=== PATIENT | female | born 1950 | race Caucasian/White ===

== ENCOUNTER → 2019-04-03 | Outpatient (CLI) | payer BC ==
--- NOTE | 2019-04-03 11:08 | MM ---
Reason for exam: screening (asymptomatic). Last mammogram was performed 1 year and 1 month ago. History: Patient is postmenopausal. Physical Findings: A clinical breast exam by your physician is recommended on an annual basis and results should be correlated with mammographic findings. MG 3D Screening Mammo W/Cad Bilateral CC and MLO view(s) were taken. Prior study comparison: February 19, 2018, mammogram, performed at [facility]. January 13, 2017, mammogram, performed at [facility]. The breast tissue is heterogeneously dense. This may lower the sensitivity of mammography. Benign appearing bilateral calcifications. No suspicious abnormality. No significant changes when compared with prior studies. ASSESSMENT: Benign, BI-RAD 2 RECOMMENDATION: Routine screening mammogram of both breasts in 1 year.
== END | disposition home or self-care (01) ==
LOC: RADMAMWWP 06:56
PROVIDERS: ATTEND Obstetrics & Gynecology Gynecologic Oncology
DX: Z12.31 Encounter for screening mammogram for malignant neoplasm of breast (principal)
CPT/HCPCS: 77063; 77067

== ENCOUNTER → 2020-05-12 | Outpatient (CLI) | payer BC ==
--- NOTE | 2020-05-13 11:27 | MM ---
Reason for exam: screening (asymptomatic). Last mammogram was performed 1 year and 1 month ago. History: Patient is postmenopausal. Physical Findings: A clinical breast exam by your physician is recommended on an annual basis and results should be correlated with mammographic findings. MG 3D Screening Mammo W/Cad Bilateral CC and MLO view(s) were taken. Prior study comparison: April 03, 2019, bilateral MG 3d screening mammo w/cad. February 19, 2018, mammogram, performed at [facility]. There are scattered fibroglandular densities. Stable benign calcifications. There is no discrete abnormality. No significant changes when compared with prior studies. ASSESSMENT: Benign, BI-RAD 2 RECOMMENDATION: Routine screening mammogram of both breasts in 1 year.
== END | disposition home or self-care (01) ==
LOC: RADMAMWWP 07:32
PROVIDERS: ATTEND Obstetrics & Gynecology Gynecologic Oncology
DX: Z12.31 Encounter for screening mammogram for malignant neoplasm of breast (principal)
CPT/HCPCS: 77063; 77067

== ENCOUNTER → 2020-12-04 | Outpatient (CLI) | payer OTHER ==
--- NOTE | 2020-12-04 12:09 | XR ---
Right kidney HISTORY: Trauma and pain 3 views of the right knee Osteoarthritic changes are present. Joint space loss present greatest in the patellofemoral joint and in the medial compartment, tricompartmental marginal spurring. Bone mineralization is reduced. No ev ident joint effusion. IMPRESSION: Osteoarthritis. No acute fracture or dislocation is evident.
--- NOTE | 2020-12-04 12:16 | XR ---
Right hand HISTORY: Trauma and pain 3 views of the right hand There are arthropathy changes consistent with erosive osteoarthritis at the distal interphalangeal jewel ints. Bone mineralization is reduced. Some widening of the scapholunate distance is questioned. Scler osis present at the carpometacarpal joint of the first digit. Arthropathy also noted at the proximal tibial joints. IMPRESSION: Osteoarthritis, possible erosive osteoarthritis. Possible scapholunate dissociation. No f racture or dislocation.
--- NOTE | 2020-12-04 12:18 | XR ---
Right foot HISTORY: Trauma and pain 3 views the right foot Sclerosis present at the distal phalanx of the first digit right foot may be due to bone island. Bone mineralization is otherwise somewhat reduced. Alignment and joint spaces are maintained. There are a rthropathy changes of the tarsometatarsal joints. Soft tissue swelling noted. IMPRESSION: No fracture or dislocation. Osteoarthritis.
== END | disposition home or self-care (01) ==
LOC: RADXRMAIN 11:38
PROVIDERS: ATTEND Emergency Medicine
DX: M17.11 Unilateral primary osteoarthritis, right knee (principal); M19.041 Primary osteoarthritis, right hand; M19.071 Primary osteoarthritis, right ankle and foot

== ENCOUNTER → 2021-05-14 | Outpatient (CLI) | payer BC ==
--- NOTE | 2021-05-18 13:43 | MM ---
Reason for exam: screening (asymptomatic). Last mammogram was performed 1 year ago. History: Patient is postmenopausal and has history of endometrial cancer at age 56. Took hormonal contraceptives for 2 years. Physical Findings: A clinical breast exam by your physician is recommended on an annual basis and results should be correlated with mammographic findings. MG 3D Screening Mammo W/Cad Bilateral CC and MLO view(s) were taken. Prior study comparison: May 12, 2020, bilateral MG 3d screening mammo w/cad. April 03, 2019, bilateral MG 3d screening mammo w/cad. There are scattered fibroglandular densities. No significant changes when compared with prior studies. ASSESSMENT: Benign, BI-RAD 2 RECOMMENDATION: Routine screening mammogram of both breasts in 1 year.
== END | disposition home or self-care (01) ==
LOC: RADMAMWWP 07:06
PROVIDERS: ATTEND Obstetrics & Gynecology Gynecologic Oncology
DX: Z12.31 Encounter for screening mammogram for malignant neoplasm of breast (principal); Z78.0 Asymptomatic menopausal state; Z85.42 Personal history of malignant neoplasm of other parts of uterus; Z79.3 Long term (current) use of hormonal contraceptives
CPT/HCPCS: 77063; 77067

== ENCOUNTER → 2022-07-25 | Outpatient (CLI) | payer BC ==
--- NOTE | 2022-07-26 08:21 | MM ---
Reason for Exam: Screening (asymptomatic). Last mammogram was performed 1 year(s) and 2 month(s) ago. Patient History: Menarche at age 14. First Full-Term at age 25. Left ovary removed at age 56. Right ovary removed at age 56. Hysterectomy at age 56. Postmenopausal. Endometrial cancer, age 56. Patient used Hormonal Contraceptives for 2 years. Risk Values: Ruma 5 year model risk: 1.6%. NCI Lifetime model risk: 4.3%. Prior Study Comparison: 04/03/2019 Bilateral Screening Mammogram, [facility]. 05/12/2020 Bilateral Screening Mammogram, [facility]. 05/14/2021 Bilateral Screening Mammogram, [facility]. Tissue Density: The breast tissue is heterogeneously dense. This may lower the sensitivity of mammography. Findings: Analyzed By CAD. There is no suspicious group of microcalcifications or new suspicious mass in either breast. Overall Assessment: Negative, BI-RAD 1 Management: Screening Mammogram of both breasts in 1 year. A clinical breast exam by your physician is recommended on an annual basis and results should be correlated with mammographic findings. Electronically signed and approved by: Gurpreet Glass M.D. Radiologis
== END | disposition home or self-care (01) ==
LOC: RADMAMWWP 07:13
PROVIDERS: ATTEND Obstetrics & Gynecology Gynecologic Oncology
DX: Z12.31 Encounter for screening mammogram for malignant neoplasm of breast (principal); Z78.0 Asymptomatic menopausal state
CPT/HCPCS: 77063; 77067

== ENCOUNTER → 2023-08-01 | Outpatient (CLI) | payer BC ==
--- NOTE | 2023-08-02 07:39 | MM ---
Reason for Exam: Screening (asymptomatic). Last mammogram was performed 1 year(s) and 1 month(s) ago. Patient History: Menarche at age 14. First Full-Term at age 25. Left ovary removed at age 56. Right ovary removed at age 56. Hysterectomy at age 56. Postmenopausal. Endometrial cancer, age 56. Patient used Hormonal Contraceptives for 2 years. Risk Values: Ruma 5 year model risk: 1.6%. NCI Lifetime model risk: 4.1%. Prior Study Comparison: 05/12/2020 Bilateral Screening Mammogram, [facility]. 05/14/2021 Bilateral Screening Mammogram, [facility]. 07/25/2022 Bilateral MG 3D screening mammo w/cad, [facility]. Tissue Density: There are scattered fibroglandular densities. Findings: Analyzed By CAD. There is no suspicious group of microcalcifications or new suspicious mass in either breast. Benign calcifications in both breasts. Overall Assessment: Benign, BI-RAD 2 Management: Screening Mammogram of both breasts in 1 year. A clinical breast exam by your physician is recommended on an annual basis and results should be correlated with mammographic findings. Note on Ruma scores and lifetime risk: 1. A Ruma score greater than 3% is considered moderate risk. If this is the case, consider specialist referral to assess eligibility for a risk reducing agent. If overall lifetime risk for the development of breast cancer is 20% or higher, the patient may qualify for future screening with alternating mammogram and breast MRI. Electronically signed and approved by: Eros Diaz D.O.
== END | disposition home or self-care (01) ==
LOC: RADMAMWWP 06:53
PROVIDERS: ATTEND Obstetrics & Gynecology Gynecologic Oncology
DX: Z12.31 Encounter for screening mammogram for malignant neoplasm of breast (principal); Z78.0 Asymptomatic menopausal state
CPT/HCPCS: 77063; 77067

== ENCOUNTER → 2024-08-27 | Outpatient (CLI) | payer BC ==
--- NOTE | 2024-08-27 11:02 | MM ---
Reason for Exam: Screening (asymptomatic). Last screening mammogram was performed 12 month(s) ago. Patient History: Menarche at age 14. First Full-Term at age 25. Left ovary removed at age 56. Right ovary removed at age 56. Hysterectomy at age 56. Postmenopausal. Endometrial cancer, age 56. Patient used Hormonal Contraceptives for 2 years. Risk Values: Ruma 5 year model risk: 1.6%. NCI Lifetime model risk: 3.9%. Prior Study Comparison: 05/14/2021 Bilateral Screening Mammogram, [facility]. 07/25/2022 Bilateral MG 3D screening mammo w/cad, [facility]. 08/01/2023 Bilateral MG 3D screening mammo w/cad, [facility]. Tissue Density: There are scattered areas of fibroglandular density. Findings: Analyzed By CAD. There is no suspicious group of microcalcifications or new suspicious mass in either breast. Overall Assessment: Negative, BI-RAD 1 Management: Screening Mammogram of both breasts in 1 year. . Patient should continue monthly self-breast exams. A clinical breast exam by your physician is recommended on an annual basis. This exam should not preclude additional follow-up of suspicious palpable abnormalities. Note on Ruma scores and lifetime risk: 1. A Ruma score greater than 3% is considered moderate risk. If this is the case, consider specialist referral to assess eligibility for a risk reducing agent. 2. If overall lifetime risk for the development of breast cancer is 20% or higher, the patient may qualify for future screening with alternating mammogram and breast MRI. [facility], , 08/27/2024 10:59 AM. Electronically signed and approved by: Dilip Patrick M.D. Radiologist
== END | disposition home or self-care (01) ==
LOC: RADMAMWWP 06:56
PROVIDERS: ATTEND Obstetrics & Gynecology Gynecologic Oncology
CPT/HCPCS: 77063; 77067